=== PATIENT | female | born 1990 | race Two or more races ===

== ENCOUNTER 2019-07-22 19:32 | Emergency (ER) | payer MEDICAID ==
[2019-07-22] MEDS ORDERED: diphenhydrAMINE 50 MG Cap PO ONE (19:54)
[2019-07-22] MEDS ORDERED: predniSONE 20 MG Tab PO ONE (19:54)
--- NOTE | 2019-07-22 19:56 | EDM.PDOC ---
ED HPI GENERAL MEDICAL PROBLEM - General Chief Complaint: Skin Complaint Stated Complaint: RASH ON LEFT SHOULDER Time Seen by Provider: 07/22/19 19:42 Source of Information: Reports: Patient History Limitations: Reports: No Limitations - History of Present Illness INITIAL COMMENTS - FREE TEXT/NARRATIVE: HISTORY AND PHYSICAL: History of present illness: Patient is a 29-year-old female who presents to the emergency room with complaints of a rash to her left arm. She states she stayed at a friend's house and had noticed some itching from a blanket that she was laying on, shortly after developed rash/hives. States she has had the rash for approximately 24 hours which has not improved. She states it is very uncomfortable as she cannot stop "scratching at it". Patient states she is also out of her rescue inhaler and is requesting a refill. Otherwise has no other complaints. Patient denies any fever, chills, headache, change in vision , syncope or near syncope. Denies any chest pain, back pain, shortness of breath or cough. Denies any GI or symptoms. Patient has been eating and drinking appropriately. Review of systems: As per history of present illness and below otherwise all systems reviewed and negative. Past medical history: As per history of present illness and as reviewed below otherwise noncontributory. Surgical history: As per history of present illness and as reviewed below otherwise noncontributory. Social history: See social history for further information Family history: As per history of present illness and as reviewed below otherwise noncontributory. Physical exam: General: Well-developed and well-nourished 29-year-old female. Alert and oriented. Nontoxic-appearing and in no acute distress. HEENT: Atraumatic, normocephalic, pupils equal and reactive bilaterally, negative for conjunctival pallor or scleral icterus, mucous membranes moist, TMs normal bilaterally, throat clear, neck supple, nontender, trachea midline. No drooling or trismus noted. No meningeal signs. No hot potato voice noted. Lungs: Clear to auscultation, breath sounds equal bilaterally, chest nontender. Heart: S1S2, regular rate and rhythm without overt murmur Abdomen: Soft, nondistended, nontender. Skin: Pinpoint bumps to left deltoid with superficial scratch perez around site. Intact, warm, dry. No lesions or rashes noted. Extremities: Atraumatic, moves all extremities per self without difficulty or deficits, negative for cords or calf pain. Neurovascular unremarkable. Neuro: Awake, alert, oriented. Cranial nerves II through XII unremarkable. Cerebellum unremarkable. Motor and sensory unremarkable throughout. Exam nonfocal. Notes: As she is nontoxic in appearance. Appears to be a contact dermatitis. Low suspicion for scabies/ infestations. Supportive care measures were reviewed and discussed. Voices understanding and is agreeable to plan of care. Denies any further questions or concerns at this time. Diagnostics: None Therapeutics: Prednisone, Benadryl Prescription: Medrol, Atarax Impression: Contact dermatitis Encounter for medication refill Plan: 1. Keep the skin clean and dry. Wash gently with soap and water twice daily. 2. Take the medications as prescribed. 3. Follow-up with your primary care provider as we discussed. Return to the ED as needed and as discussed. Definitive disposition and diagnosis as appropriate pending reevaluation and review of above. - Related Data Allergies Allergy/AdvReac Type Severity Reaction Status Date / Time peanut Allergy Hives Verified 07/22/19 19:44 peas Allergy Hives Verified 07/22/19 19:44 soy Allergy Hives Verified 07/22/19 19:44 Home Meds: Home Meds Albuterol Sulfate [Proair Hfa] 2 puff IH Q4H PRN #1 hfa.aer.ad 07/22/19 [Rx] Cannabidiol (Cbd) Extract [CBD Oil] 17 mg PO ASDIRECTED 07/22/19 [History] Cetirizine [ZyrTEC] 10 mg PO DAILY 07/22/19 [History] Doxycycline [Doxycycline Monohydrate] 100 mg PO DAILY 07/22/19 [History] Montelukast [Singulair] 10 mg PO DAILY 07/22/19 [History] hydrOXYzine HCL [Atarax] 25 mg PO TID PRN #9 tab 07/22/19 [Rx] lamoTRIgine [Lamotrigine] 150 mg PO BID 07/22/19 [History] methylPREDNISolone [Medrol] 1 dose PO DAILY 6 Days #1 dospk 07/22/19 [Rx] Past Medical History HEENT History: Reports: None Cardiovascular History: Reports: None Respiratory History: Reports: Asthma Gastrointestinal History: Reports: None Genitourinary History: Reports: None 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 Musculoskeletal History: Reports: None Neurological History: Reports: None Psychiatric History: Reports: Anxiety, Bipolar, Depression, PTSD Endocrine/Metabolic History: Reports: None Insulin Pump Model and Slate Trimmer: N/A Hematologic History: Reports: None Immunologic History: Reports: None Oncologic (Cancer) History: Reports: None Dermatologic History: Reports: Eczema, Other (See Below) Other Dermatologic History: Acne - Infectious Disease History Infectious Disease History: Reports: None - Past Surgical History Head Surgeries/Procedures: Reports: None Social & Family History - Family History Family Medical History: Noncontributory - Tobacco Use Smoking Status *Q: Never Smoker - Caffeine Use Caffeine Use: Reports: Soda - Recreational Drug Use Recreational Drug Use: No ED ROS GENERAL - Review of Systems Review Of Systems: Comprehensive ROS is negative, except as noted in HPI. ED EXAM, SKIN/RASH Exam: See Below (See dictation) Course - Vital Signs Last Recorded V/S: Last Vital Signs Temp 97.7 F 07/22/19 19:40 Pulse 100 07/22/19 19:40 Resp 18 07/22/19 19:40 BP 121/79 07/22/19 19:40 Pulse Ox 98 07/22/19 19:40 - Orders/Labs/Meds Meds: Medications Discontinued Medications Generic Name Dose Route Start Last Admin Trade Name Freq PRN Reason Stop Dose Admin Diphenhydramine HCl 50 mg 07/22/19 19:54 Benadryl PO 07/22/19 19:55 ONETIME ONE Prednisone 20 mg 07/22/19 19:54 Prednisone PO 07/22/19 19:55 ONETIME ONE Departure - Departure Time of Disposition: 19:55 Disposition: Home, Self-Care 01 Clinical Impression: Encounter for medication refill Contact dermatitis Qualifiers: Contact dermatitis type: irritant Contact dermatitis trigger: unspecified trigger Qualified Code(s): L24.9 - Irritant contact dermatitis, unspecified cause - Discharge Information Prescriptions: Albuterol Sulfate [Proair Hfa] 2 puff IH Q4H PRN #1 hfa.aer.ad PRN Reason: Dyspnea hydrOXYzine HCL [Atarax] 25 mg PO TID PRN #9 tab PRN Reason: Itching methylPREDNISolone [Medrol] 1 dose PO DAILY 6 Days #1 dospk Instructions: Contact Dermatitis, [id number] Referrals: PCP,Not In Area [Primary Care Provider] - Forms: ED Department Discharge Additional Instructions: The following information is given to patients seen in the emergency department who are being discharged to home. This information is to outline your options for follow-up care. We provide all patients seen in our emergency department with a follow-up referral. The need for follow-up, as well as the timing and circumstances, are variable depending upon the specifics of your emergency department visit. If you don't have a primary care physician on staff, we will provide you with a referral. We always advise you to contact your personal physician following an emergency department visit to inform them of the circumstance of the visit and for follow-up with them and/or the need for any referrals to a consulting specialist. The emergency department will also refer you to a specialist when appropriate. This referral assures that you have the opportunity for follow-up care with a specialist. All of these measure are taken in an effort to provide you with optimal care, which includes your follow-up. Under all circumstances we always encourage you to contact your private physician who remains a resource for coordinating your care. When calling for follow-up care, please make the office aware that this follow-up is from your recent emergency room visit. If for any reason you are refused follow-up, please contact the [facility] Emergency Department at and asked to speak to the emergency department charge nurse. [facility] [address] [place] [id number] [address] 1. Keep the skin clean and dry. Wash gently with soap and water twice daily. 2. Take the medications as prescribed. 3. Follow-up with your primary care provider as we discussed. Return to the ED as needed and as discussed. Sepsis Event Note - Evaluation Sepsis Screening Result: No Definite Risk - Focused Exam Vital Signs: Vital Signs Temp Pulse Resp BP Pulse Ox 07/22/19 19:40 97.7 F 100 18 121/79 98 Date Exam was Performed: 07/22/19 Time Exam was Performed: 19:59
== END 2019-07-22 20:10 | disposition home or self-care (01) ==
LOC: MW.ED 19:32
DX: R21 Rash and other nonspecific skin eruption (principal); L25.9 Unspecified contact dermatitis, unspecified cause; J45.909 Unspecified asthma, uncomplicated; Z76.0 Encounter for issue of repeat prescription; Z91.010 Allergy to peanuts; Z91.018 Allergy to other foods; Z79.899 Other long term (current) drug therapy
CPT/HCPCS: 99282; A9270

== ENCOUNTER 2019-08-09 15:56 | Emergency (ER) | payer MEDICAID ==
[2019-08-09] MEDS ORDERED: Ondansetron 4 MG Tab.DIS PO ONE (16:28)
--- NOTE | 2019-08-09 16:31 | EDM.PDOC ---
ED HPI GENERAL MEDICAL PROBLEM - General Chief Complaint: Gastrointestinal Problem Stated Complaint: NAUSEA,VOMITTING Time Seen by Provider: 08/09/19 15:59 Source of Information: Reports: Patient History Limitations: Reports: No Limitations - History of Present Illness INITIAL COMMENTS - FREE TEXT/NARRATIVE: HISTORY AND PHYSICAL: History of present illness: Patient is a 29-year-old female who presents to the emergency room with complaints of intermittent nausea and vomiting x1 week. Patient states that she has missed the last 2 months of her Depo control injection; concerned she may be . To previously being on Depakote she has not had a regular menstrual, unsure of last date. Has had unprotected sex. Denies any concerns of STDs. She states she does have some generalized abdominal pain which she states is because she is hungry but is concerned either as she has been so nauseous. Patient denies any fever, chills, headache, change in vision, syncope or near syncope. Denies any chest pain, back pain, shortness of breath or cough. Denies any vaginal bleeding, abdominal cramping, low back pain, diarrhea, constipation or dysuria. Has not noted any blood in urine or stool. Patient has been eating and drinking appropriately. Review of systems: As per history of present illness and below otherwise all systems reviewed and negative. Past medical history: As per history of present illness and as reviewed below otherwise noncontributory. Surgical history: As per history of present illness and as reviewed below otherwise noncontributory. Social history: See social history for further information Family history: As per history of present illness and as reviewed below otherwise noncontributory. Physical exam: General: Well-developed and well-nourished 28-year-old female. Alert and oriented. Nontoxic-appearing and in no acute distress. HEENT: Atraumatic, normocephalic, pupils equal and reactive bilaterally, negative for conjunctival pallor or scleral icterus, mucous membranes moist, TMs normal bilaterally, throat clear, neck supple, nontender, trachea midline. No drooling or trismus noted. No meningeal signs. No hot potato voice noted. Lungs: Clear to auscultation, breath sounds equal bilaterally, chest nontender. Heart: S1S2, regular rate and rhythm without overt murmur Abdomen: Soft, nondistended, nontender. Negative for masses or hepatosplenomegaly. Negative for costovertebral tenderness. Skin: Intact, warm, dry. No lesions or rashes noted. Extremities: Atraumatic, moves all extremities per self without difficulty or deficits, negative for cords or calf pain. Neurovascular unremarkable. Neuro: Awake, alert, oriented. Cranial nerves II through XII unremarkable. Cerebellum unremarkable. Motor and sensory unremarkable throughout. Exam nonfocal. Notes: Lab work is unremarkable. She is relieved that her is negative. She did have Zofran and an oral challenge. She was able to keep fluids down and states she does feel better. She states she has a prescription for her Depakote shot but has not been able to go and get it. We discussed the need to continue to practice safe sex. Zofran prescription will be given. Supportive care measures were reviewed and discussed. Voices understanding and is agreeable to plan of care. Denies any further questions or concerns at this time. Diagnostics: UA, hCGU Therapeutics: Zofran Prescription: Zofran Impression: Nausea and vomiting Plan: 1. Labs were normal today. Lewis diet over the next 24 -48 hours; advance as tolerated. Please get your Depo-shot when able. Continue to practice safe sex. 2. Zofran as needed for nausea as directed. 3. Follow up with your primary care provider as we discussed. Return to the ED as needed as discussed. Definitive disposition and diagnosis as appropriate pending reevaluation and review of above. Abdominal Pain Score (Numeric/FACES): 7 - Related Data Allergies Allergy/AdvReac Type Severity Reaction Status Date / Time peanut Allergy Hives Verified 08/09/19 16:32 peas Allergy Hives Verified 08/09/19 16:32 soy Allergy Hives Verified 08/09/19 16:32 Home Meds: Home Meds Albuterol Sulfate [Proair Hfa] 2 puff IH Q4H PRN #1 hfa.aer.ad 07/22/19 [Rx] Cannabidiol (Cbd) Extract [CBD Oil] 17 mg PO ASDIRECTED 07/22/19 [History] Cetirizine [ZyrTEC] 10 mg PO DAILY 07/22/19 [History] Doxycycline [Doxycycline Monohydrate] 100 mg PO DAILY 07/22/19 [History] Montelukast [Singulair] 10 mg PO DAILY 07/22/19 [History] hydrOXYzine HCL [Atarax] 25 mg PO TID PRN #9 tab 07/22/19 [Rx] lamoTRIgine [Lamotrigine] 150 mg PO BID 07/22/19 [History] methylPREDNISolone [Medrol] 1 dose PO DAILY 6 Days #1 dospk 07/22/19 [Rx] Past Medical History HEENT History: Reports: None Cardiovascular History: Reports: None Respiratory History: Reports: Asthma Gastrointestinal History: Reports: None Genitourinary History: Reports: None 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 (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) 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 Musculoskeletal History: Reports: None Neurological History: Reports: None Psychiatric History: Reports: Anxiety, Bipolar, Depression, PTSD Endocrine/Metabolic History: Reports: None Insulin Pump Model and Dump Attendant: N/A Hematologic History: Reports: None Immunologic History: Reports: None Oncologic (Cancer) History: Reports: None Dermatologic History: Reports: Eczema, Other (See Below) Other Dermatologic History: Acne - Infectious Disease History Infectious Disease History: Reports: None - Past Surgical History Head Surgeries/Procedures: Reports: None Social & Family History - Family History Family Medical History: Noncontributory - Caffeine Use Caffeine Use: Reports: Soda ED ROS GENERAL - Review of Systems Review Of Systems: Comprehensive ROS is negative, except as noted in HPI. ED EXAM, GI/ABD - Physical Exam Exam: See Below (See dictation) Course - Vital Signs Last Recorded V/S: Last Vital Signs Temp 98.3 F 08/09/19 16:33 Pulse 97 08/09/19 16:33 Resp 18 08/09/19 16:33 BP 132/75 08/09/19 16:33 Pulse Ox 98 08/09/19 16:33 - Orders/Labs/Meds Labs: Laboratory Tests 08/09/19 08/09/19 Range/Units 16:36 16:36 Urine Color YELLOW Urine Appearance CLEAR Urine pH 6.0 (5.0-8.0) Ur Specific Elma >= 1.030 (1.001-1.035) Urine Protein NEGATIVE (NEGATIVE) mg/dL Urine Glucose (UA) NEGATIVE (NEGATIVE) mg/dL Urine Ketones 15 H (NEGATIVE) mg/dL Urine Occult Blood NEGATIVE (NEGATIVE) Urine Nitrite NEGATIVE (NEGATIVE) Urine Bilirubin NEGATIVE (NEGATIVE) Urine Urobilinogen 0.2 (<2.0) EU/dL Ur Leukocyte Esterase NEGATIVE (NEGATIVE) Urine HCG, Qual NEGATIVE (NEGATIVE) Meds: Medications Discontinued Medications Generic Name Dose Route Start Last Admin Trade Name Abdullahi PRN Reason Stop Dose Admin Ondansetron HCl 4 mg 08/09/19 16:28 08/09/19 16:37 Zofran Odt PO 08/09/19 16:29 4 mg ONETIME ONE Administration Departure - Departure Time of Disposition: 16:55 Disposition: Home, Self-Care 01 Clinical Impression: Gastritis Qualifiers: Gastritis type: unspecified gastritis Chronicity: acute Gastritis bleeding: without bleeding Qualified Code(s): K29.00 - Acute gastritis without bleeding - Discharge Information Instructions: Nausea and Vomiting, Adult, [id number] Referrals: PCP,Not In Area [Primary Care Provider] - Forms: ED Department Discharge Additional Instructions: The following information is given to patients seen in the emergency department who are being discharged to home. This information is to outline your options for follow-up care. We provide all patients seen in our emergency department with a follow-up referral. The need for follow-up, as well as the timing and circumstances, are variable depending upon the specifics of your emergency department visit. If you don't have a primary care physician on staff, we will provide you with a referral. We always advise you to contact your personal physician following an emergency department visit to inform them of the circumstance of the visit and for follow-up with them and/or the need for any referrals to a consulting specialist. The emergency department will also refer you to a specialist when appropriate. This referral assures that you have the opportunity for follow-up care with a specialist. All of these measure are taken in an effort to provide you with optimal care, which includes your follow-up. Under all circumstances we always encourage you to contact your private physician who remains a resource for coordinating your care. When calling for follow-up care, please make the office aware that this follow-up is from your recent emergency room visit. If for any reason you are refused follow-up, please contact the [facility] Emergency Department at and asked to speak to the emergency department charge nurse. [facility] [address] [place] [id number] [facility] [address] [place] [address] 1. Labs were normal today. Lewis diet over the next 24 -48 hours; advance as tolerated. Please get your Depo-shot when able. Continue to practice safe sex. 2. Zofran as needed for nausea as directed. 3. Follow up with your primary care provider as we discussed. Return to the ED as needed as discussed. Sepsis Event Note - Focused Exam Vital Signs: Vital Signs Temp Pulse Resp BP Pulse Ox 08/09/19 16:33 98.3 F 97 18 132/75 98 Date Exam was Performed: 08/09/19 Time Exam was Performed: 16:52
== END 2019-08-09 17:21 | disposition home or self-care (01) ==
LOC: MW.ED 15:56
DX: K29.00 Acute gastritis without bleeding (principal); J45.909 Unspecified asthma, uncomplicated; F31.9 Bipolar disorder, unspecified; Z91.018 Allergy to other foods; Z79.899 Other long term (current) drug therapy
CPT/HCPCS: 81003; 81025; 99283; A9270